=== PATIENT | female | born 1980 | race Caucasian/White ===

== ENCOUNTER 2022-10-04 11:47 | Outpatient (CLI) | payer MEDICARE, BC ==
[~2022-10-04 11:47] MED LIST: CARB200T PO; HGH; HGH PO; LAMICTAL; LAMO100T2 PO; ORLI60CA2 PO; TENUATE PO; THYR65TA PO; ZONI50CA15 PO; [UNRECOGNIZED DRUG - OTHER] PO; [UNRECOGNIZED DRUG - OTHER] PO
== END 2022-10-04 23:59 | disposition home or self-care (01) ==
LOC: RAD 11:47
PROVIDERS: ATTEND Student in an Organized Health Care Education/Training Program
DX: M19.071 Primary osteoarthritis, right ankle and foot (principal)
CPT/HCPCS: 78315; A9503